=== PATIENT | male | born 1930 | race Caucasian/White ===

== ENCOUNTER → 2017-09-17 | Outpatient (CLI) | payer MEDICARE, OTHER ==
[~2017-09-17] MED LIST: AMLO5 PO; CENTRUM SILVER1 EAC2 PO; CHOL10002 PO; CLON.2TP TOP; CLOP75 PO; ESZO3 PO; Flomax0.4 MG PO; HYDR10 PO; Hydrochloroth12.5 MG PO; NITR.3TP TOP; Nitrostat0.4 MG SL; OMEG1CAP30 PO; OMEP20ER PO; Questran4 GM PO; SIMV10 PO; Zestril30 MG PO
== END ==
LOC: PLD 10:28 → LAB SHORT 10:28
DX: D22.4 Melanocytic nevi of scalp and neck (principal)
CPT/HCPCS: 88305

== ENCOUNTER → 2018-01-14 | Outpatient (CLI) | payer MEDICARE, OTHER ==
[~2018-01-14] MED LIST changes: -ESZO3 PO; -HYDR10 PO; -Nitrostat0.4 MG SL; -Questran4 GM PO
== END | disposition home or self-care (01) ==
LOC: PLD 08:02 → LAB SHORT 08:02
DX: L30.8 Other specified dermatitis (principal)
CPT/HCPCS: 88305; 88312

== ENCOUNTER 2019-07-30 15:15 | Emergency (ER) | payer OTHER, MEDICARE ==
[~2019-07-30] VITALS: Ht 177.8 cm; Wt 86.2 kg
[~2019-07-30 15:15] MED LIST changes: +ESZO3 PO; +HYDR10 PO; +Nitrostat0.4 MG SL; +Questran4 GM PO
[2019-07-30] MEDS ORDERED: Norco 10-325 T1 EACH PO (16:17)
== END 2019-07-30 16:28 | disposition home or self-care (01) ==
LOC: ER 15:15
DX: S76.312A Strain of muscle, fascia and tendon of the posterior muscle group at thigh level, left thigh, initial encounter (principal); I10 Essential (primary) hypertension; Z88.2 Allergy status to sulfonamides; Z88.1 Allergy status to other antibiotic agents; Z88.0 Allergy status to penicillin; Z88.8 Allergy status to other drugs, medicaments and biological substances; Z79.899 Other long term (current) drug therapy; Z79.01 Long term (current) use of anticoagulants; Z86.73 Personal history of transient ischemic attack (TIA), and cerebral infarction without residual deficits; Z87.891 Personal history of nicotine dependence; X58.XXXA Exposure to other specified factors, initial encounter
CPT/HCPCS: 93971; 99283-25

== ENCOUNTER → 2020-07-31 | Outpatient (CLI) | payer MEDICARE, OTHER ==
[~2020-07-31] MED LIST changes: +Norco 10-325 T1 EACH PO
[2020-08-03 09:41] LABS: Stool Occult Bld Immuno 1 Positive (NEGATIVE)
[2020-08-03 09:42] LABS: Stool Occult Bld Immuno 2 Negative (NEGATIVE)
== END | disposition home or self-care (01) ==
LOC: LAB 11:09 → LAB SHORT 08-02 11:09 → LAB 08-02 11:09 → LAB FUT 07-16 08:25
PROVIDERS: Internal Medicine
DX: E61.1 Iron deficiency (principal); E53.8 Deficiency of other specified B group vitamins; D64.9 Anemia, unspecified; I10 Essential (primary) hypertension
CPT/HCPCS: 82274

== ENCOUNTER 2020-08-12 16:24 | Emergency (ER) | payer MEDICARE, OTHER ==
[~2020-08-12] VITALS: Ht 177.8 cm; Wt 83.9 kg
[2020-08-12] MEDS ORDERED: HYDR10 PO (16:43)
[2020-08-12] MEDS ORDERED: LOSA50 PO (16:44)
[2020-08-12 17:12] LABS: Alanine Aminotransfer (ALT/SGP 22 U/L (12-78); Albumin, Blood 3.8 g/dL (3.4-5.0); Albumin/Globulin Ratio 1.2 (0.8-1.8); Alk Phos 76 U/L (50-136); Anion Gap 12 mmol/L (6-16); Aspartate Aminotrans (AST/SGOT 23 U/L (12-37); Bilirubin, Total 0.4 mg/dL (0.1-1.0); Blood Urea Nitrogen 31 mg/dL (8-24); Bun/Creatinine Ratio 23.1 (12.0-20.0); CO2, Blood 20 mmol/L (21-32); Calcium, Blood 9.6 mg/dL (8.5-10.1); Chloride, Blood 107 mmol/L (98-108); Creatinine, Blood 1.34 mg/dL (0.60-1.20); Globulin, Blood 3.2 g/dL (2.2-4.0); Glomerular Filtration Rate 53 (60-); Glucose, Blood 82 mg/dL (70-99); Potassium, Blood 3.7 mmol/L (3.5-5.5); Sodium, Blood 139 mmol/L (136-145); Troponin I <0.015 ng/mL (0.000-0.040)
[2020-08-12 17:22] LABS: BASOPHILS ABSOLUTE AUTO 0.02 K/mm3 (0.00-0.23); BASOPHILS PERCENT AUTO 0 % (0-2); EOSINOPHILS PERCENT AUTO 2 % (0-6); Hematocrit 40.3 % (37.0-53.0); Hemoglobin 13.4 g/dL (13.5-17.5); IMMATURE GRAN ABSOLUTE AUTO 0.02 K/mm3 (0.00-0.10); IMMATURE GRAN PERCENT AUTO 0 % (0-1); LYMPHOCYTES ABSOLUTE AUTO 1.24 K/mm3 (0.84-5.20); LYMPHOCYTES PERCENT AUTO 19 % (21-46); MONOCYTES ABSOLUTE AUTO 0.63 K/mm3 (0.16-1.47); MONOCYTES PERCENT AUTO 9 % (4-13); Mean Corpuscular HGB 31.3 pg (26.0-34.0); Mean Corpuscular HGB Conc 33.3 g/dL (31.5-36.5); Mean Corpuscular Volume 94 fL (80-100); Mean Platelet Volume 10.9 fL (9.1-12.4); NEUTROPHILS ABSOLUTE AUTO 4.69 K/mm3 (1.96-9.15); NEUTROPHILS PERCENT AUTO 70 % (41-73); Platelet Count 157 K/mm3 (150-400); RDW Coefficient Variation 13.4 % (11.7-14.2); RDW Standard Deviation 46.7 fL (35.1-46.3); Red Blood Cell Count 4.28 M/mm3 (4.30-5.90)
[2020-08-12] MEDS ORDERED: Isosorbide Mono30 MG PO (19:48)
[2020-08-12] MEDS ORDERED: Nitrostat0.4 MG SL (19:48)
[2020-10-21] MEDS ORDERED: CLOP75 PO (12:09)
[2020-10-21] MEDS ORDERED: CENTRUM SILVER1 EAC2 PO (12:10)
[2020-10-21] MEDS ORDERED: Norco 5-325 Ta1 EACH PO (12:10)
[2020-10-21] MEDS ORDERED: Voltaren100 GM (12:10)
[2020-10-21] MEDS ORDERED: OMEP20ER PO (12:10)
[2020-10-21] MEDS ORDERED: LOSARTAN POTAS100 M1 PO (12:10)
[2020-10-21] MEDS ORDERED: SIMV10 PO (12:11)
[2020-10-21] MEDS ORDERED: TAMS.4ER PO (12:11)
== END 2020-08-12 20:21 | disposition home or self-care (01) ==
LOC: ER 16:24
PROVIDERS: Emergency Medicine; Physician Assistant
DX: I20.0 Unstable angina (principal); Z79.02 Long term (current) use of antithrombotics/antiplatelets; Z79.899 Other long term (current) drug therapy
CPT/HCPCS: 36415; 71046; 80053; 84484; 85025; 93005; 93010; 99285-25; A9270

== ENCOUNTER 2020-10-19 19:48 | Observation (INO) | payer MEDICARE, OTHER ==
[~2020-10-19] VITALS: Ht 177.8 cm; Wt 89.1 kg
[~2020-10-19 19:48] MED LIST changes: +Isosorbide Mono30 MG PO; +LOSA50 PO
[2020-10-19] MEDS ORDERED: CYAN500 PO (20:12)
[2020-10-19] MEDS ORDERED: Acetaminophen325 M1 PO (20:12)
[2020-10-19 20:23] LABS: BASOPHILS ABSOLUTE AUTO 0.02 K/mm3 (0.00-0.23); BASOPHILS PERCENT AUTO 0 % (0-2); EOSINOPHILS ABSOLUTE AUTO 0.01 K/mm3 (0.00-0.68); EOSINOPHILS PERCENT AUTO 0 % (0-6); Hematocrit 41.4 % (37.0-53.0); Hemoglobin 14.1 g/dL (13.5-17.5); IMMATURE GRAN ABSOLUTE AUTO 0.04 K/mm3 (0.00-0.10); IMMATURE GRAN PERCENT AUTO 0 % (0-1); LYMPHOCYTES ABSOLUTE AUTO 0.51 K/mm3 (0.84-5.20); LYMPHOCYTES PERCENT AUTO 5 % (21-46); MONOCYTES ABSOLUTE AUTO 0.39 K/mm3 (0.16-1.47); MONOCYTES PERCENT AUTO 4 % (4-13); Mean Corpuscular HGB 30.7 pg (26.0-34.0); Mean Corpuscular HGB Conc 34.1 g/dL (31.5-36.5); Mean Corpuscular Volume 90 fL (80-100); Mean Platelet Volume 11.4 fL (9.1-12.4); NEUTROPHILS ABSOLUTE AUTO 9.32 K/mm3 (1.96-9.15); NEUTROPHILS PERCENT AUTO 91 % (41-73); Platelet Count 137 K/mm3 (150-400); RDW Coefficient Variation 12.3 % (11.7-14.2); RDW Standard Deviation 40.6 fL (35.1-46.3); Red Blood Cell Count 4.59 M/mm3 (4.30-5.90); White Blood Cell Count 10.29 K/mm3 (4.00-11.30)
[2020-10-19 20:37] LABS: International Normalized Ratio 1.01; Prothrombin Time Results 10.8 Sec (9.7-11.5)
[2020-10-19 20:42] LABS: Alanine Aminotransfer (ALT/SGP 21 U/L (12-78); Albumin, Blood 3.5 g/dL (3.4-5.0); Albumin/Globulin Ratio 1.2 (0.8-1.8); Alk Phos 63 U/L (50-136); Anion Gap 8 mmol/L (6-16); Aspartate Aminotrans (AST/SGOT 20 U/L (12-37); Bilirubin, Total 0.8 mg/dL (0.1-1.0); Blood Urea Nitrogen 20 mg/dL (8-24); Bun/Creatinine Ratio 19.4 (12.0-20.0); CO2, Blood 26 mmol/L (21-32); Calcium, Blood 8.8 mg/dL (8.5-10.1); Chloride, Blood 104 mmol/L (98-108); Creatinine, Blood 1.03 mg/dL (0.60-1.20); Globulin, Blood 2.9 g/dL (2.2-4.0); Glomerular Filtration Rate >60 (60-); Glucose, Blood 142 mg/dL (70-99); Potassium, Blood 3.4 mmol/L (3.5-5.5); Sodium, Blood 138 mmol/L (136-145); Total Protein, Blood 6.4 g/dL (6.4-8.2)
[2020-10-19 21:13] LABS: Troponin I 0.126 ng/mL (0.000-0.040)
--- NOTE | 2020-10-19 23:32 | NUR ---
Transfer report from [facility] on PT 89 years old with 3 cardiac stents placed at [facility] in [place] this AM who had several episodes of garbled speech & headache which has since resolved. He is DNR status will be on tele obs & have neuro checks. PT has HX of stroke. Irreg cardiac on EKG. Await admission. DTR reported to accompanty to ER.
[2020-10-20] MEDS ORDERED: ASPI81CH PO (01:50)
[2020-10-20] MEDS ORDERED: Aspirin EC81 MG PO (01:52)
[2020-10-20 04:30] LABS: BASOPHILS ABSOLUTE AUTO 0.02 K/mm3 (0.00-0.23); BASOPHILS PERCENT AUTO 0 % (0-2); EOSINOPHILS PERCENT AUTO 0 % (0-6); Hematocrit 36.4 % (37.0-53.0); Hemoglobin 12.3 g/dL (13.5-17.5); IMMATURE GRAN ABSOLUTE AUTO 0.02 K/mm3 (0.00-0.10); IMMATURE GRAN PERCENT AUTO 0 % (0-1); LYMPHOCYTES ABSOLUTE AUTO 0.91 K/mm3 (0.84-5.20); LYMPHOCYTES PERCENT AUTO 11 % (21-46); MONOCYTES ABSOLUTE AUTO 0.67 K/mm3 (0.16-1.47); MONOCYTES PERCENT AUTO 8 % (4-13); Mean Corpuscular HGB 30.7 pg (26.0-34.0); Mean Corpuscular HGB Conc 33.8 g/dL (31.5-36.5); Mean Corpuscular Volume 91 fL (80-100); Mean Platelet Volume 11.5 fL (9.1-12.4); NEUTROPHILS ABSOLUTE AUTO 6.53 K/mm3 (1.96-9.15); NEUTROPHILS PERCENT AUTO 80 % (41-73); Platelet Count 137 K/mm3 (150-400); RDW Coefficient Variation 12.2 % (11.7-14.2); RDW Standard Deviation 40.9 fL (35.1-46.3); Red Blood Cell Count 4.01 M/mm3 (4.30-5.90); White Blood Cell Count 8.15 K/mm3 (4.00-11.30)
--- NOTE | 2020-10-20 04:38 | NUR ---
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 He has hx of stated TIAS effecting speech last reported 6 months ago. PT was admitted with slurred speech & headache. No verbal deficits noted. Hard of hearing wearing bilat hearing aides. Called [facility] to get tele order & report PT co burning from IV potassium so tko NS to run concurrently was obtained. PT NSR with freq PVCs post cardiac stents x 3 . DNR status confirmed. HX of TIAS has MRI pending. PT has back surgery in Apr 2020. DTR Naz accompanied PT to floor assist with admission assessment. notified PT refused IV potassium .1 time ordal dose ordered.
[2020-10-20 04:47] LABS: Anion Gap 6 mmol/L (6-16); Blood Urea Nitrogen 22 mg/dL (8-24); Bun/Creatinine Ratio 21.2 (12.0-20.0); CO2, Blood 28 mmol/L (21-32); Calcium, Blood 7.9 mg/dL (8.5-10.1); Chloride, Blood 105 mmol/L (98-108); Creatinine, Blood 1.04 mg/dL (0.60-1.20); Glomerular Filtration Rate >60 (60-); Glucose, Blood 112 mg/dL (70-99); Potassium, Blood 3.8 mmol/L (3.5-5.5); Sodium, Blood 139 mmol/L (136-145); Troponin I 0.195 ng/mL (0.000-0.040)
--- NOTE | 2020-10-20 09:33 | NUR ---
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 STEADY GAIT IN ROOM. [facility]
[2020-10-20] MEDS ORDERED: KRILL OIL500 MG PO (09:38)
--- NOTE | 2020-10-20 12:05 | NUR ---
REVIEW D'C. AWARE HAS APPT IN 2 DAYS. NO CHANGES IN MEDS AND PRINTED WHEN LAST DOSES WERE TAKEN. AWARE CAN RETURN TO E.R. IF ANY PROBLEMS. IV D'C WITH NO SIGNS SWELLING OR BRUISING. NO SLURRED SPEECH, OR FACIAL DROOP. ALERT. ORIENTED. WILL LET FAMILY DECIDE ON WHEN SPLINT TO RT HAND COMES OFF. HELP PATIENT DIAL SON FOR RIDE. WAITING FOR RIDE.
[2020-10-21] MEDS ORDERED: CLOP75 PO (12:09)
[2020-10-21] MEDS ORDERED: Norco 5-325 Ta1 EACH PO (12:10)
[2020-10-21] MEDS ORDERED: LOSARTAN POTAS100 M1 PO (12:10)
[2020-10-21] MEDS ORDERED: OMEP20ER PO (12:10)
[2020-10-21] MEDS ORDERED: CENTRUM SILVER1 EAC2 PO (12:10)
[2020-10-21] MEDS ORDERED: Voltaren100 GM (12:10)
[2020-10-21] MEDS ORDERED: SIMV10 PO (12:11)
[2020-10-21] MEDS ORDERED: TAMS.4ER PO (12:11)
== END 2020-10-20 12:33 | disposition home or self-care (01) ==
LOC: ER 19:48 → MEDS 19:49
PROVIDERS: Emergency Medicine; Nurse Practitioner Acute Care; ADMIT Internal Medicine
DX: G45.9 Transient cerebral ischemic attack, unspecified (principal); R47.02 Dysphasia; R51.9 Headache, unspecified; R41.3 Other amnesia; I25.10 Atherosclerotic heart disease of native coronary artery without angina pectoris; I49.1 Atrial premature depolarization; I49.3 Ventricular premature depolarization; I10 Essential (primary) hypertension; E78.5 Hyperlipidemia, unspecified; K21.9 Gastro-esophageal reflux disease without esophagitis; Z95.5 Presence of coronary angioplasty implant and graft; Z79.02 Long term (current) use of antithrombotics/antiplatelets; Z87.891 Personal history of nicotine dependence; Z88.1 Allergy status to other antibiotic agents; Z88.0 Allergy status to penicillin; Z88.2 Allergy status to sulfonamides; Z88.8 Allergy status to other drugs, medicaments and biological substances
CPT/HCPCS: 36415; 70450; 80048; 80053; 84484; 85025; 85610; 85730; 92523; 93005; 93010; 96365; 99285-25; A9270; G0378; J3475; J3480; J7050

== ENCOUNTER → 2021-03-17 | Outpatient (CLI) | payer MEDICARE, OTHER ==
[~2021-03-17] MED LIST changes: +ASPI81CH PO; +Acetaminophen325 M1 PO; +Aspirin EC81 MG PO; +CYAN500 PO; +KRILL OIL500 MG PO; +LOSARTAN POTAS100 M1 PO; +Norco 5-325 Ta1 EACH PO; +TAMS.4ER PO; +Voltaren100 GM
== END | disposition home or self-care (01) ==
LOC: LAB SHORT 13:50 → LAB 13:50
DX: C44.222 Squamous cell carcinoma of skin of right ear and external auricular canal (principal)
CPT/HCPCS: 88305

== ENCOUNTER → 2021-05-04 | Outpatient (CLI) | payer MEDICARE, OTHER | END | disposition home or self-care (01) | LOC: LAB SHORT 07:11 | DX: L57.8 Other skin changes due to chronic exposure to nonionizing radiation (principal); L82.1 Other seborrheic keratosis | CPT/HCPCS: 88305 ==

== ENCOUNTER 2021-06-10 10:37 | Day surgery (SDC) | payer MEDICARE, OTHER ==
[~2021-06-10] VITALS: Ht 175.3 cm; Wt 82.7 kg
[2021-06-10] MEDS ORDERED: ASPI81CH (11:31)
== END 2021-06-10 15:10 | disposition home or self-care (01) ==
LOC: ORSCSDS 10:37
PROVIDERS: Internal Medicine Gastroenterology
PROC: 0DJ08ZZ Inspection of Upper Intestinal Tract, Via Natural or Artificial Opening Endoscopic (ICD-10-PCS; principal; 2021-06-10 12:00)
PROC: 0DBL8ZX Excision of Transverse Colon, Via Natural or Artificial Opening Endoscopic, Diagnostic (ICD-10-PCS; principal; 2021-06-10 12:00)
DX: D50.9 Iron deficiency anemia, unspecified (principal); K92.1 Melena; D12.3 Benign neoplasm of transverse colon; K21.9 Gastro-esophageal reflux disease without esophagitis; K29.70 Gastritis, unspecified, without bleeding; K57.30 Diverticulosis of large intestine without perforation or abscess without bleeding; K64.4 Residual hemorrhoidal skin tags; Z86.010 Personal history of colon polyps; Z79.82 Long term (current) use of aspirin; Z79.899 Other long term (current) drug therapy; I10 Essential (primary) hypertension; I25.10 Atherosclerotic heart disease of native coronary artery without angina pectoris; Z87.891 Personal history of nicotine dependence; Z86.73 Personal history of transient ischemic attack (TIA), and cerebral infarction without residual deficits; Z79.02 Long term (current) use of antithrombotics/antiplatelets
CPT/HCPCS: 88305; J2704; J7120